=== PATIENT | male | born 1965 | race Caucasian/White ===

== ENCOUNTER 2024-11-14 11:08 | Emergency (ER) | payer OTHER, MEDICAID, SELFPAY ==
[2024-11-14] VITALS (8 sets, daily range): BP systolic 146–168; BP diastolic 103–106; PULSE 113–131; RESP 16–25; TEMP 36.7–39.4; O2SAT 95–100; BMI 27.6
--- NOTE | 2024-11-14 11:15 | PC.NURSE ---
Patient biba for shortness of breath. warm to touch. Tachy 130s-140s and hypertensive. temp 102.9 orally. Patient currently states he will not be treating the staff here with respect and states he will leave while cussing out the CNAs who are attempting to help him. allergies to penicillin.
--- NOTE | 2024-11-14 11:20 | PC.NURSE ---
1118 Patient refusing for us to help put a gown on him. Agitated and cursing at staff.
--- NOTE | 2024-11-14 11:21 | PC.NURSE ---
Patient will intermittently participate in care. Randomly refuses to respond to questions regarding medical treatment.
--- NOTE | 2024-11-14 11:24 | XR_ITS ---
Examination: AP chest single view TECHNIQUE: AP portable upright chest single view Exam date and time: November 14, 2024 1147 hours INDICATIONS: Sepsis protocol, fever tachycardia today. FINDINGS: Suspicious for early pneumonia in the left midlung and both bases Normal heart size CABG IMPRESSION: Suspicious for early bilateral pneumonia
--- NOTE | 2024-11-14 11:24 | EKG_ITS ---
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
--- NOTE | 2024-11-14 11:26 | PD.EDADULT ---
ED General RME/HPI General Stated complaint: DUFFICULTY BREATHING Time Seen by Provider: 11/14/24 11:23 Arrival date/time: 11/14/24 11:08 RME / HPI RME / HPI narrative: 59-year-old male patient with significant history of hypertension, COPD, hypercholesterolemia, was brought in by EMS for evaluation regarding shortness of breath. Patient's been having worsening shortness of breath for the last 2 weeks, getting worse, severity moderate. Patient's been using his COPD medication with no relief. Patient was satting 94% on room air when the EMS arrived. Patient was given albuterol. When examined the patient patient was noted to be tachycardic, and having a fever 102.9. Sepsis alert was initiated right away. Related Data Home Medications ?Medication ?Instructions ?Recorded ?Confirmed allopurinol 100 mg tablet 100 mg PO QDAY 02/20/22 02/20/22 atorvastatin 80 mg tablet 80 mg PO QDAY 02/20/22 02/20/22 clopidogrel 75 mg tablet 75 mg PO QDAY 02/20/22 02/20/22 furosemide 20 mg tablet 20 mg PO QDAY 02/20/22 02/20/22 gabapentin 100 mg tablet 100 mg PO BID 02/20/22 02/20/22 montelukast 10 mg tablet 10 mg PO QPM 02/20/22 02/20/22 pantoprazole 40 mg tablet,delayed 40 mg PO QDAY 02/20/22 02/20/22 release sertraline 100 mg tablet 100 mg PO QDAY 02/20/22 02/20/22 Previous Rx's ?Medication ?Instructions ?Recorded primidone 50 mg tablet 50 mg PO BID #0 tabs 02/21/22 primidone 50 mg tablet 50 mg PO BID #60 tabs 02/21/22 doxycycline hyclate 100 mg capsule 100 mg PO BID #14 caps 11/14/24 oseltamivir 30 mg capsule (Tamiflu) 30 mg PO BID 5 days #10 caps 11/14/24 prednisone 50 mg tablet 50 mg PO QDAY #7 tabs 11/14/24 Allergies Allergy/AdvReac Type Severity Reaction Status Date / Time acetaminophen [From Vicodin] Allergy Swelling Verified 02/20/22 16:07 of Lip/Tongue/Throat aspirin Allergy Swelling Verified 02/20/22 16:07 of Lip/Tongue/Throat codeine Allergy Swelling Verified 02/20/22 16:07 of Lip/Tongue/Throat hydrocodone [From Vicodin] Allergy Swelling Verified 02/20/22 16:07 of Lip/Tongue/Throat Penicillins Allergy Swelling Verified 02/20/22 16:07 of Lip/Tongue/Throat Review of Systems Review of Systems Narrative Review of Systems: Review of system reviewed and within normal limits except mentioned in HPI ED Exam Narrative Physical exam: VITAL SIGNS: Reviewed. GENERAL APPEARANCE: Alert and interactive, follows commands, no acute distress, febrile HEAD AND FACE: Non-traumatic. ENT: PERRL, pink conjunctivitis, eyelid no trauma, Mucous membrane moist. NECK: Supple, nontender, no nuchal rigidity. CHEST: Symmetric, no rales, + wheezing, no ronchi, no stridor, decreased breath sounds bilaterally. HEART: Tachycardic, no murmur, no gallops. ABDOMEN: Soft, positive bowel sounds, nondistended, no guarding, nontender, no rebound, no masses, RECTAL: Deferred. GENITAL: Deferred. NEUROLOGICAL: Gross motor function intact sensory function intact, Appropriate for age. MUSCULOSKELETAL: low back nontender, full range of motion. EXTREMITIES: Nontender, full range of motion. SKIN: Color pink, dry, no rash, no lacerations, no abrasions, no contusions. LYMPHATICS: Deferred. Course Quality Measures none Orders Category Date Time Status Bedside COVID-19 Antigen Test NOW Care 11/14/24 11:24 Active Bedside Influenza A&B Antigen Test NOW Care 11/14/24 11:26 Completed Transformer Assembler STAT Care 11/14/24 11:24 Active Continuous Pulse Oximetry STAT Care 11/14/24 11:24 Completed EKG (ED ONLY) *Do not use* NOW Care 11/14/24 11:24 Completed In and Out Catheter X1PRN Care 11/14/24 11:24 Active Insert IV NOW Care 11/14/24 11:24 Active NPO STAT Care 11/14/24 11:24 Active Strict Intake and Output Routine Care 11/14/24 11:24 Ordered EKG (ED Only) Stat Exams 11/14/24 11:24 Draft XR chest 1V SEPSIS PROTOCOL Stat Exams 11/14/24 11:24 Completed B-Type Natriuretic Peptide Stat Lab 11/14/24 11:41 Completed Blood Culture (Lab) Stat Lab 11/14/24 11:36 Received CBC Stat Lab 11/14/24 11:41 Completed Comprehensive Metabolic Panel Stat Lab 11/14/24 11:41 Completed LDH (Lactate Dehydrogenase) Stat Lab 11/14/24 11:41 Completed Lactate (Lactic Acid) Stat Lab 11/14/24 11:41 Completed Lactic Acid, 3 HR Stat Lab 11/14/24 15:06 Completed Lipase Stat Lab 11/14/24 11:41 Completed Magnesium Stat Lab 11/14/24 11:41 Completed Partial Thromboplastin Time Stat Lab 11/14/24 11:41 Completed Phosphorous Stat Lab 11/14/24 11:41 Completed Procalcitonin Stat Lab 11/14/24 11:41 Completed Prothrombin Time with INR Stat Lab 11/14/24 11:41 Completed Troponin I Stat Lab 11/14/24 11:41 Completed Urinalysis Stat Lab 11/14/24 12:45 Completed Urine Culture Stat Lab 11/14/24 12:45 Received VBG [Venous Blood Gas] Stat Lab 11/14/24 11:41 Completed Ibuprofen Tab [Motrin Tab] Med 11/14/24 11:24 Discontinued 800 mg PO X1 ONE Levalbuterol Rt [Xopenex Rt Devika] Med 11/14/24 11:24 Discontinued 1.25 mg INH X1 ONE MethylPREDNISolone.* [SoluMEDROL Inj] Med 11/14/24 11:24 Discontinued 125 mg IVP X1 ONE Oseltamivir [Tamiflu] Med 11/14/24 15:34 Discontinued 30 mg PO X1 ONE Oseltamivir [Tamiflu] Med 11/14/24 15:32 Discontinued 75 mg PO X1 ONE Sodium Chloride 0.9% 1000 ml [Ns] 1,000 ml Med 11/14/24 15:33 Active IV 999 mls/hr Sodium Chloride Rt Devika 0.9% [NS Rt Devika 0.9%] Med 11/14/24 11:24 Active 3 ml INH PRN PRN cefTRIAXone/D5w 1gm IV premix [Rocephin/D5w 1gm IV Med 11/14/24 11:25 Discontinued premix] 50 ml IV X1 Oxygen Delivery NOW RT 11/14/24 11:24 Active Vital Signs Vital signs: Vital Signs Temperature 102.9 F H 11/14/24 11:15 Pulse Rate 131 H 11/14/24 11:15 Respiratory Rate 20 11/14/24 11:15 Blood Pressure 168/103 H 11/14/24 11:15 Pulse Oximetry (%) 97 11/14/24 11:15 Oxygen Delivery Method Nasal Cannula 11/14/24 11:15 Oxygen Flow Rate 6 11/14/24 11:15 [facility] Patient data External records reviewed:: None Clinical information provided by:: none Social determinants that could affect healthcare access:: none Patient has the following chronic illnesses:: COPD How is presenting disease/condition affected by chronic disease/condition?: exacerbated by Evaluation data The following diagnostics were reviewed and interpreted by me:: lab results, radiology exam(s) and EKG tracing(s) Lab and/or radiology exams considered but not ordered:: None Interpretation Summary: EKG shows sinus tachycardia, ventricular rate of 127 bpm, no ST segment elevation or depression noted. Laboratory workup all came back with no leukocytosis on CBC however patient lactic acid was noted to be 2.7. Patient's creatinine also was noted to be 1.7, last creatinine several months ago was 1.6. Patient tested positive for influenza. Urinalysis no UTI. Chest x-ray showed early bilateral pneumonia. Medications Medications considered but not ordered:: None Medication administrations:: Medication Administration History Sodium Chloride (Ns) 1,000 mls @ 999 mls/hr IV .Q1H1M ONE Stop: 11/14/24 16:33 Sodium Chloride (Sodium Chloride Rt Devika 0.9% 3 Ml Nebu) 3 ml INH PRN PRN PRN Reason: SOLN Stop: 12/14/24 11:23 Last Admin: 11/14/24 12:10 Dose: 3 ml Documented By: RIAN Discontinued Medications Ceftriaxone Sodium/Dextrose (Rocephin/D5w 1gm Iv Premix) 50 mls @ 100 mls/hr IV X1 ONE Stop: 11/14/24 11:54 Last Infusion: 11/14/24 12:24 Dose: Infused Documented By: Admin: 11/14/24 12:01 Dose: 100 mls/hr Documented By: RY Ibuprofen (Ibuprofen Tab 400 Mg Tablet) 800 mg PO X1 ONE Stop: 11/14/24 11:25 Last Admin: 11/14/24 15:05 Dose: 800 mg Documented By: RY Levalbuterol HCl (Levalbuterol Rt 1.25 Mg/0.5 Ml Nebu) 1.25 mg INH X1 ONE Stop: 11/14/24 11:25 Last Admin: 11/14/24 12:10 Dose: 1.25 mg Documented By: RIAN Methylprednisolone Sodium Succinate (Methylprednisolone Sod Succ 62.5 Mg/Ml 2ml Vial) 125 mg IVP X1 ONE Stop: 11/14/24 11:25 Last Admin: 11/14/24 12:00 Dose: 125 mg Documented By: RY Oseltamivir Phosphate (Oseltamivir 75 Mg Capsule) 75 mg PO X1 ONE Stop: 11/14/24 15:33 Oseltamivir Phosphate (Oseltamivir 30 Mg Capsule) 30 mg PO X1 ONE Stop: 11/14/24 15:35 Tamiflu, Solu-Medrol IV, Xopenex, and Motrin patient was also given ceftriaxone IV. Patient also given IV fluids for hydration Consultations Consultation(s) initiated? (list below): No Diagnosis Differential Diagnosis ED Complaint MDM: Influenza, pneumonia, COPD exacerbation Most likely diagnosis given after review of the tests above:: Influenza, pneumonia, COPD exacerbation Admission Indicated Admission indicated?: not indicated Explain why admission is indicated or not indicated:: Stable for discharge. Patient was satting 95% on room air patient told me that he is ready to go home Admission Request Was there a request for admission?: No Disposition Plan Disposition Plan: Discharge Discharge Attestation Discharge Attestation: The patient was given an opportunity to ask questions and understood the discharge instructions. Discharge instructions specifically effects, indications for sooner follow up or return to the emergency department, and the expected course of current diagnosis. Patient condition: Stable Medical Decision Making MDM Narrative MDM Narrative: 59-year-old male patient with significant history of hypertension, COPD, hypercholesterolemia, was brought in by EMS for evaluation regarding shortness of breath. Patient's been having worsening shortness of breath for the last 2 weeks, getting worse, severity moderate. Patient's been using his COPD medication with no relief. Patient was satting 94% on room air when the EMS arrived. Patient was given albuterol. When examined the patient patient was noted to be tachycardic, and having a fever 102.9. Sepsis alert was initiated right away. Differential Diagnosis Differential Diagnosis: Influenza, pneumonia, COPD exacerbation Lab Data 11/14/24 11:41 11/14/24 11:41 Labs: Lab Results 11/14/24 11/14/24 11/14/24 Range/Units 11:41 12:45 15:06 WBC 4.9 (3.8-10.6) Thou/mm3 RBC 4.72 (4.50-5.90) Miln/mm3 Hgb 14.5 (13.5-16.0) g/dL Hct 43.7 (41.0-53.0) % MCV 93 (80-100) fL MCH 30.7 (25.0-35.0) pg MCHC 33.2 (31.0-37.0) g/dl RDW Std Deviation 46.0 H (35.1-43.9) fL Plt Count 78 L (140-440) Thou/mm3 Neut % (Auto) 87 H (37-80) % Lymph % (Auto) 5 L (10-50) % Cross % (Auto) 8 (0-12) % Eos % (Auto) 0 (0-10) % Baso % (Auto) 1 (0-2.5) % Neut # (Auto) 4.3 (1.8-7.7) Thou/mm3 Lymph # (Auto) 0.2 L (1.0-4.8) Thou/mm3 Cross # (Auto) 0.4 (0.0-0.8) Thou/mm3 Eos # (Auto) 0.0 (0.0-0.5) Thou/mm3 Baso # (Auto) 0.0 (0.0-0.2) Thou/mm3 Immature Gran # (Auto) 0.01 H (0.00-0.00) Thou/mm3 Absolute Nucleated RBC 0.00 (0.00-0.00) Thou/mm3 Immature Gran % 0 (0-0) % Nucleated RBC % 0 (0) /100 WBC PT 13.0 H (9.0-12.2) Seconds INR 1.2 (0.9-1.3) APTT 36.5 H (22.0-36.0) Seconds VBG pH 7.38 (7.33-7.66) VBG pCO2 36 (36-56) mmHg VBG pO2 27 (15-58) mmHg VBG O2 Sat (Steph) 52 L (96-97) % VBG Base Excess -3 (-3-3) Sodium 135 L (136-145) mMol/L Potassium 4.4 (3.4-5.1) mMol/L Chloride 104 (98-107) mMol/L Carbon Dioxide 23.3 (20.0-31.0) mMol/L Anion Gap 8 (7-16) BUN 15 (9-23) mg/dL Creatinine 1.7 H (0.6-1.3) mg/dL Estim Creat Clear Calc 51.4 L (>60) mL/min eGFR 46 L (60 - ) See Note BUN/Creatinine Ratio 9 L (12-20) Ratio Glucose 98 (74-106) mg/dL Calculated Osmolality 270 L (275-295) Lactic Acid 2.7 H 2.7 H (0.4-2.0) mMol/L Calcium 10.8 H (8.3-10.6) mg/dL Corrected Calcium 10.8 H (8.5-10.1) mg/dL Phosphorus 1.7 L (2.4-5.1) mg/dL Magnesium 2.0 (1.6-2.6) mg/dL Total Bilirubin 0.8 (0.3-1.2) mg/dL AST 17 (0-34) U/L ALT 17 (10-49) U/L Alkaline Phosphatase 132 H (46-116) U/L Lactate Dehydrogenase 160 (120-246) U/L Troponin I < 0.020 (0.0-0.045) ng/mL B-Natriuretic Peptide 216 H (0-100) pg/mL Total Protein 7.6 (5.7-8.2) gm/dL Albumin 4.2 (3.5-5.0) gm/dL Globulin 3.4 (2.3-3.5) gm/dL Albumin/Globulin Ratio 1.2 (1.2-2.2) Lipase 36 (12-53) U/L Procalcitonin 0.22 (0.0-0.49) ng/ml Ur Collection Type Clean Catch Urine Color Yellow (Lt Yel-Yel) Urine Clarity Clear (Clear/Hazy) Urine pH 6.0 (5.0-7.0) Ur Specific [place] 1.024 (1.001-1.035) Urine Protein 1+ A (Neg - Trace) Urine Glucose (UA) Negative (Negative) Urine Ketones Trace (Negative) Urine Blood 1+ A (Negative) Urine Nitrite Negative (Negative) Urine Bilirubin Negative (Negative) Urine Urobilinogen (Auto) 4.0 (0.0-1.0) mg/dL Ur Leukocyte Esterase Negative (Negative) Urine RBC 1 (0-3) /hpf Urine WBC 3 (0-5) /hpf Ur Squamous Epith Cells < 1 (0-5) /hpf Urine Bacteria None (None) Misc Test Result Platelets confirmed Discharge Plan Plan Patient Disposition: HOME (Self Care) Disposition Comment: Stable Prescriptions/Referrals Prescriptions/Med Rec: New oseltamivir [Tamiflu] 30 mg capsule 30 mg PO BID 5 Days Qty: 10 0RF prednisone 50 mg tablet 50 mg PO QDAY Qty: 7 0RF doxycycline hyclate 100 mg capsule 100 mg PO BID Qty: 14 0RF No Action atorvastatin 80 mg Tablet 80 mg PO QDAY clopidogrel 75 mg Tablet 75 mg PO QDAY allopurinol 100 mg Tablet 100 mg PO QDAY furosemide 20 mg Tablet 20 mg PO QDAY gabapentin 100 mg Tablet 100 mg PO BID pantoprazole 40 mg Tablet,Delayed Release (Dr/Ec) 40 mg PO QDAY montelukast 10 mg Tablet 10 mg PO QPM sertraline 100 mg Tablet 100 mg PO QDAY primidone 50 mg Tablet 50 mg PO BID Qty: 0 0RF primidone 50 mg tablet 50 mg PO BID Qty: 60 2RF Referrals: No Primary/Family,Physician [Primary Care Provider] - In 1 week Problem List Clinical Impression: Influenza, Pneumonia Patient/Caregiver Discharge Instructions Education Materials: ED Pneumonia (Adult) Additional Instructions: Thank you for the opportunity for serving you today. You are stable for discharged . You are advised to: Follow-up with your PCP in 1 to 2 days Return to ED for worsening of symptoms Take medication as prescribed Print Language: Sami Stand Alone Forms: Renetta Award Info., Patient Portal Info Letter PA/LITERACY CONSULTANT Supervising Physician MERCED/LITERACY CONSULTANT Supervising Physician: MD Sharmaine
--- NOTE | 2024-11-14 11:38 | PC.NURSE ---
Patient states he refuses all antibiotics and steroids. States he only wants a warm blanket and water
[2024-11-14 11:45] LABS: Base Excess, Venous -3 (-3-3); Lactate (Lactic Acid) 2.7 mMol/L (0.4-2.0); O2 Saturation, Venous 52 % (96-97); PCO2, Venous 36 mmHg (36-56); PO2, Venous 27 mmHg (15-58); pH, Venous 7.38 (7.33-7.66)
[2024-11-14 11:50] LABS: Basophils % (Auto) 1 % (0-2.5); Eosinophils % (Auto) 0 % (0-10); Hematocrit 43.7 % (41.0-53.0); Hemoglobin 14.5 g/dL (13.5-16.0); Immature Granulocytes % (Auto) 0 % (0-0); Immature Granulocytes Auto 0.01 Thou/mm3 (0.00-0.00); Lymphocytes # (Auto) 0.2 Thou/mm3 (1.0-4.8); Lymphocytes % (Auto) 5 % (10-50); Mean Corpuscular HGB Conc 33.2 g/dl (31.0-37.0); Mean Corpuscular Hemoglobin 30.7 pg (25.0-35.0); Mean Corpuscular Volume 93 fL (80-100); Monocytes # (Auto) 0.4 Thou/mm3 (0.0-0.8); Monocytes % (Auto) 8 % (0-12); Neutrophils # (Auto) 4.3 Thou/mm3 (1.8-7.7); Neutrophils % (Auto) 87 % (37-80); Nucleated Red Blood Cell % 0 /100 WBC (0); Platelet Count 78 Thou/mm3 (140-440); Red Blood Count 4.72 Miln/mm3 (4.50-5.90); White Blood Count 4.9 Thou/mm3 (3.8-10.6)
[2024-11-14] MEDS: MethylPREDNISolone SOD SUCC 62.5 MG/ML 2ML VIAL 125 MG IVP (12:00)
[2024-11-14] MEDS: cefTRIAXone/D5w 1gm IV premix 50 ML IV (12:01)
[2024-11-14 12:02] LABS: INR 1.2 (0.9-1.3); Partial Thromboplastin Time 36.5 Seconds (22.0-36.0)
[2024-11-14 12:05] LABS: B-Type Natriuretic Peptide 216 pg/mL (0-100)
[2024-11-14] MEDS: SODIUM CHLORIDE RT SOL 0.9% 3 ML NEBU INH (12:10)
[2024-11-14] MEDS: LEVALBUTEROL RT 1.25 MG/0.5 ML NEBU INH (12:10)
--- NOTE | 2024-11-14 12:10 | PC.NURSE ---
Patient allowed for steroid and antibiotics to be given. Currently refusing all other treatment until he feels ready. Refusing ibuprofen until later on
[2024-11-14 12:14] LABS: Alanine Aminotransferase 17 U/L (10-49); Albumin, Serum 4.2 gm/dL (3.5-5.0); Albumin/Globulin Ratio 1.2 (1.2-2.2); Alkaline Phosphatase 132 U/L (46-116); Anion Gap 8 (7-16); Aspartate Amino Transferase 17 U/L (0-34); BUN/Creatinine Ratio 9 Ratio (12-20); Bilirubin,Total 0.8 mg/dL (0.3-1.2); Blood Urea Nitrogen 15 mg/dL (9-23); Calcium 10.8 mg/dL (8.3-10.6); Calcium (Corrected) 10.8 mg/dL (8.5-10.1); Carbon Dioxide 23.3 mMol/L (20.0-31.0); Chloride 104 mMol/L (98-107); Creatinine (Component) 1.7 mg/dL (0.6-1.3); Estimated Creatinine Clearance 51.4 mL/min (>60); Globulin 3.4 gm/dL (2.3-3.5); Glucose 98 mg/dL (74-106); LDH (Lactate Dehydrogenase) 160 U/L (120-246); Lipase 36 U/L (12-53); Osmolality,Calculated 270 (275-295); Phosphorous 1.7 mg/dL (2.4-5.1); Potassium 4.4 mMol/L (3.4-5.1); Procalcitonin 0.22 ng/ml (0.0-0.49); Sodium 135 mMol/L (136-145); Total Protein 7.6 gm/dL (5.7-8.2); Troponin I < 0.020 ng/mL (0.0-0.045); eGFR 46 See Note
[2024-11-14 12:21] LABS: Slide Review Platelets confirmed
--- NOTE | 2024-11-14 12:37 | PC.NURSE ---
Patient informed that he has influenza A. Still refusing ibuprofen and refusing to answer all questions at this time.
[2024-11-14 13:05] LABS: Collection Type, Urine Clean Catch
[2024-11-14 13:09] LABS: Bilirubin,Urine Negative (Negative); Blood,Urine 1+ (Negative); Clarity,Urine Clear (Clear/Hazy); Color,Urine Yellow (Lt Yel-Yel); Glucose, Urine Negative (Negative); Ketones,Urine Trace (Negative); Leukocyte Esterase,Urine Negative (Negative); Nitrite,Urine Negative (Negative); Protein,Urine 1+ (Neg - Trace); RBC,Urine 1 /hpf (0-3); Specific Gravity,Urine 1.024 (1.001-1.035); Squamous Epithelial Cell,Urine < 1 /hpf (0-5); WBC,Urine 3 /hpf (0-5)
--- NOTE | 2024-11-14 13:50 | PC.NURSE ---
Patient states he put himself on the floor in an effort to get attention. He states he knows he had his call light but felt the response time was not fast enough and he didn't come to get this automobile service writer because he felt the RN was busy. When asked what he needs he states a pillow and to be left on the floor to sleep. Patient provided pillow
[2024-11-14 14:43] LABS: Reflex Lactate? Y
[2024-11-14] MEDS: IBUPROFEN TAB 400 MG TABLET 800 MG PO (15:05)
[2024-11-14 15:15] LABS: Lactic Acid, 3 HR 2.7 mMol/L (0.4-2.0)
[2024-11-14] MEDS: SODIUM CHLORIDE 0.9% 1000 ML 1,000 ML 999 ML IV (16:50)
[2024-11-14] MEDS: OSELTAMIVIR 30 MG CAPSULE PO (16:54)
--- NOTE | 2024-11-14 18:25 | PC.NURSE ---
Patient refused to allow vital sign check. Patient gcs 15 aao x4. Patient's son contacted for rides and states someone is on the way. Patient stated he wants to wait outside. Offered a warm blanket, patient refused. No questions or concerns at this time. States he feels better and understands to roll picker medications at the pharmacy.
== END 2024-11-14 18:28 | disposition home or self-care (01) ==
PROVIDERS: Nurse Practitioner Family; Emergency Provider Emergency Medicine
DX: J44.0 Chronic obstructive pulmonary disease with (acute) lower respiratory infection (principal); J11.00 Influenza due to unidentified influenza virus with unspecified type of pneumonia; R00.0 Tachycardia, unspecified; I10 Essential (primary) hypertension; E78.00 Pure hypercholesterolemia, unspecified
CPT/HCPCS: 36415; 71045; 80053; 81001; 82803; 83605; 83615; 83690; 83735; 83880; 84100; 84145; 84484; 85025; 85610; 85730; 87040; 87086; 87400; 87811; 93005; 94640; 96365; 96375; 99284; J0696; J2919; J7030; A9270

== ENCOUNTER 2025-09-16 22:26 | Emergency (ER) | payer OTHER, MEDICAID, SELFPAY ==
--- NOTE | 2025-09-16 22:36 | PD.EDHA ---
ED Headache RME/HPI General Chief Complaint: Headache Stated Complaint: HEADACHE Time Seen by Provider: 09/16/25 22:36 Arrival date/time: 09/16/25 22:26 RME / HPI RME / HPI Narrative: Dr. Foreman?s Main ED Evaluation: 59yo male with a history of COPD, HTN BIBA from home presents to the ED for complaints of a headache and dizziness x 2130. Patient was using the restroom when he suddenly developed a significant headache and felt dizzy. Patient denies any chest pain, shortness of breath, or any other associated symptoms. Patient endorses he's had headaches in the past, but not to this severity. Of note, patient had 4 cardiac stents placed 6 days ago. Related Data Home Medications ?Medication ?Instructions ?Recorded ?Confirmed allopurinol 100 mg tablet 100 mg PO QDAY 02/20/22 02/20/22 atorvastatin 80 mg tablet 80 mg PO QDAY 02/20/22 02/20/22 clopidogrel 75 mg tablet 75 mg PO QDAY 02/20/22 02/20/22 furosemide 20 mg tablet 20 mg PO QDAY 02/20/22 02/20/22 gabapentin 100 mg tablet 100 mg PO BID 02/20/22 02/20/22 montelukast 10 mg tablet 10 mg PO QPM 02/20/22 02/20/22 pantoprazole 40 mg tablet,delayed 40 mg PO QDAY 02/20/22 02/20/22 release sertraline 100 mg tablet 100 mg PO QDAY 02/20/22 02/20/22 Previous Rx's ?Medication ?Instructions ?Recorded primidone 50 mg tablet 50 mg PO BID #0 tabs 02/21/22 primidone 50 mg tablet 50 mg PO BID #60 tabs 02/21/22 doxycycline hyclate 100 mg capsule 100 mg PO BID #14 caps 11/14/24 prednisone 50 mg tablet 50 mg PO QDAY #7 tabs 11/14/24 Allergies Allergy/AdvReac Type Severity Reaction Status Date / Time acetaminophen (From Vicodin) Allergy Swelling Verified 09/16/25 22:51 of Lip/Tongue/Throat aspirin Allergy Swelling Verified 09/16/25 22:51 of Lip/Tongue/Throat codeine Allergy Swelling Verified 09/16/25 22:51 of Lip/Tongue/Throat hydrocodone (From Vicodin) Allergy Swelling Verified 09/16/25 22:51 of Lip/Tongue/Throat Penicillins Allergy Swelling Verified 09/16/25 22:51 of Lip/Tongue/Throat Review of Systems Review of Systems Systems Reviewed: All systems reviewed, normal except as documented Past Medical History Past Medical History CARDIAC: Negative Congestive Heart Failure RESPIRATORY: Positive Chronic Obstructive Pulmonary Disease (COPD); Negative Asthma, Emphysema, Pneumonia or Tuberculosis GENITOURINARY: Negative Renal Disease ENDOCRINE: Negative Diabetes Mellitus Type 1 or Diabetes Mellitus Type 2 OTHER HISTORY: Negative Cancer Social History SMOKING STATUS: Heavy (> 1 pack/day) 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 Head is normocephalic atraumatic, neck shows no nuchal rigidity, eyes pupils equal round reactive to light, heart regular rate and rhythm, lungs clear to auscultation equal bilaterally, abdomen soft nondistended nontender, neurologic exam no focal motor deficits. Patient is somewhat confused to year however according to his daughter at bedside that is normal for the patient. Course Quality Measures none Orders Category Date Time Status Walls [Urinary Catheter] QS Care 09/16/25 23:[address] head/brain wo con Stat Exams 09/16/25 22:44 Taken Alcohol, Blood Medical Stat Lab 09/16/25 22:50 Completed CBC Stat Lab 09/16/25 22:50 Completed CMP [Comprehensive Metabolic Panel] Stat Lab 09/16/25 22:50 Completed Drug Screen,Urine Stat Lab 09/16/25 22:56 Completed PT [Prothrombin Time with INR] Stat Lab 09/16/25 22:50 Completed Vital Signs Vital signs: Vital Signs Temperature 98.4 F 09/16/25 22:37 Pulse Rate 84 09/16/25 22:37 Respiratory Rate 18 09/16/25 22:37 Blood Pressure 163/111 H 09/16/25 22:37 Pulse Oximetry (%) 98 09/16/25 22:37 Oxygen Delivery Method Room Air 09/16/25 22:37 Headache MDM Narrative MDM Narrative:: Scribe Attestation: 09/16/25 Modesta Ralph am scribing for and in the presence of Dr. Foreman. Patient is presenting approximately 1 hour from a sudden onset severe headache. CAT scan of the brain done well under 6 hours from the onset of pain showed no bleed. No mass. I interpreted all labs. Patient feels better and wishes to go home. I had a long discussion with the patient and his daughter at bedside who feel comfortable going home. Patient discharged in stable condition. Patient has had stable vital signs during the ER stay. Patient data External records reviewed:: [facility] previous records (Per chart review, patient was seen here on 11/14/24 for Influenza.) and EMS form Clinical information provided by:: patient and EMS Social determinants that could affect healthcare access:: none Patient has the following chronic illnesses:: COPD How is presenting disease/condition affected by chronic disease/condition?: uneffected by Evaluation data The following diagnostics were reviewed and interpreted by me:: lab results and radiology exam(s) Lab and/or radiology exams considered but not ordered:: none Interpretation Summary: See MDM. Medications / Prescriptions Medications or Prescriptions considered but not ordered:: none Medication administrations:: none Consultations Consultation(s) initiated? (list below): No Diagnosis Differential diagnosis headache: other (See MDM) Most likely diagnosis given after review of the tests above:: see clinical impression below Admission Indicated Admission indicated?: not indicated Admission Request Was there a request for admission?: No Disposition Plan Disposition Plan: Discharge Discharge Attestation Discharge Attestation: The patient and all family members were given an opportunity to ask questions and understood the discharge instructions. Discharge instructions specifically effects, indications for sooner follow up or return to the emergency department, and the expected course of current diagnosis. Patient condition: Stable Discharge Plan Plan Patient Disposition: HOME (Self Care) Prescriptions/Referrals Prescriptions/Med Rec: No Action atorvastatin 80 mg Tablet 80 mg PO QDAY clopidogrel 75 mg Tablet 75 mg PO QDAY allopurinol 100 mg Tablet 100 mg PO QDAY furosemide 20 mg Tablet 20 mg PO QDAY gabapentin 100 mg Tablet 100 mg PO BID pantoprazole 40 mg Tablet,Delayed Release (Dr/Ec) 40 mg PO QDAY montelukast 10 mg Tablet 10 mg PO QPM sertraline 100 mg Tablet 100 mg PO QDAY primidone 50 mg Tablet 50 mg PO BID Qty: 0 0RF primidone 50 mg tablet 50 mg PO BID Qty: 60 2RF prednisone 50 mg tablet 50 mg PO QDAY Qty: 7 0RF doxycycline hyclate 100 mg capsule 100 mg PO BID Qty: 14 0RF Problem List Clinical Impression: Headache Patient/Caregiver Discharge Instructions Education Materials: Self-Care for Headaches Print Language: Yi Stand Alone Forms: Renetta Trammell Info., Patient Portal Info Letter PA/DENTAL OFFICE RECEPTIONIST Supervising Physician PA/DENTAL OFFICE RECEPTIONIST Supervising Physician: Patient is stable fo
[2025-09-16 22:37] VITALS: BP 163/111; PULSE 84; RESP 18; TEMP 36.9; O2SAT 98
[2025-09-16 22:38] VITALS: PULSE 93; RESP 18; O2SAT 99; BMI 27.8
--- NOTE | 2025-09-16 22:44 | XR_ITS ---
Examination: CT brain head without contrast. 2-D sagittal coronal reconstructions Date and time of exam: September 16, 2025, 11:40 p.m., comparison February 19, 2022 INDICATIONS: Altered mental status headache today CTDI: vol (mGy): 46.7 DLP: (mGycm): 905 Technique: Multiple CT axial sections of the brain have been obtained, 5 mm slice thickness. Contrast has not been administered. 2-D sagittal, coronal reconstructions have been obtained Low dose protocols were performed. One or more of the following dose reduction techniques were used; automated exposure control, adjustment of the mA and/or KV according to patient size, use of iterative reconstruction technique. Findings: No significant ventricular enlargement. 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 No mass effect or midline shift Basal cisterns are not remarkable. Fourth ventricle is midline. Cranial vault intact. Impression: Negative for acute hemorrhage, mass effect or midline shift Multiple old appearing infarcts but clinical correlation advised As clinically warranted, brain MRI follow-up would best assess for early acute infarction
[2025-09-16 22:56] VITALS: BP 142/106; PULSE 85; RESP 18; TEMP 36.9; O2SAT 99
[2025-09-16 23:13] LABS: Basophils # (Auto) 0.1 Thou/mm3 (0.0-0.2); Basophils % (Auto) 0 % (0-2.5); Eosinophils # (Auto) 0.4 Thou/mm3 (0.0-0.5); Eosinophils % (Auto) 3 % (0-10); Hematocrit 41.8 % (41.0-53.0); Hemoglobin 14.3 g/dL (13.5-16.0); Immature Granulocytes Auto 0.05 Thou/mm3 (0.00-0.00); Lymphocytes # (Auto) 2.1 Thou/mm3 (1.0-4.8); Lymphocytes % (Auto) 15 % (10-50); Mean Corpuscular HGB Conc 34.2 g/dl (31.0-37.0); Mean Corpuscular Hemoglobin 32.7 pg (25.0-35.0); Mean Corpuscular Volume 96 fL (80-100); Monocytes # (Auto) 1.2 Thou/mm3 (0.0-0.8); Monocytes % (Auto) 9 % (0-12); Neutrophils # (Auto) 10.1 Thou/mm3 (1.8-7.7); Neutrophils % (Auto) 73 % (37-80); Nucleated Red Blood Cell # 0.00 Thou/mm3 (0.00-0.00); Nucleated Red Blood Cell % 0 /100 WBC (0); Platelet Count 201 Thou/mm3 (140-440); RDW Standard Deviation 48.4 fL (35.1-43.9); Red Blood Count 4.37 Miln/mm3 (4.50-5.90); White Blood Count 13.9 Thou/mm3 (3.8-10.6)
[2025-09-16 23:14] LABS: Amphetamine/Methamp Scrn,U Negative (Negative); Barbiturate Screen,Urine Positive (Negative); Benzodiazepines Screen,Urine Negative (Negative); Benzoylecgonine Screen, Ur Negative (Negative); Fentanyl Screen,Urine Negative (Negative); Opiate Screen,Urine Negative (Negative); THC Screen,Urine Negative (Negative)
[2025-09-16 23:19] LABS: INR 1.0 (0.9-1.3); Prothrombin Time 10.7 Seconds (9.0-12.2)
[2025-09-16 23:38] LABS: Alanine Aminotransferase 8 U/L (10-49); Albumin, Serum 4.0 gm/dL (3.5-5.0); Albumin/Globulin Ratio 1.7 (1.2-2.2); Alcohol, Blood Medical < 3.0 mg/dL (0-10.0); Alkaline Phosphatase 90 U/L (46-116); Anion Gap 11 (7-16); Aspartate Amino Transferase 14 U/L (0-34); BUN/Creatinine Ratio 11 Ratio (12-20); Bilirubin,Total 0.5 mg/dL (0.3-1.2); Blood Urea Nitrogen 14 mg/dL (9-23); Calcium 10.3 mg/dL (8.3-10.6); Calcium (Corrected) 10.3 mg/dL (8.5-10.1); Carbon Dioxide 25.1 mMol/L (20.0-31.0); Chloride 109 mMol/L (98-107); Creatinine (Component) 1.3 mg/dL (0.6-1.3); Estimated Creatinine Clearance 70.5 mL/min (>60); Globulin 2.4 gm/dL (2.3-3.5); Glucose 96 mg/dL (74-106); Osmolality,Calculated 289 (275-295); Potassium 4.2 mMol/L (3.4-5.1); Sodium 145 mMol/L (136-145); Total Protein 6.4 gm/dL (5.7-8.2); eGFR > 60 See Note
[2025-09-17 00:02] VITALS: BP 142/100; PULSE 86; RESP 20; TEMP 36.3; O2SAT 98
== END 2025-09-17 00:02 | disposition home or self-care (01) ==
LOC: SERX 09-17 00:10
PROVIDERS: Emergency Provider Emergency Medicine
DX: R51.9 Headache, unspecified (principal); I10 Essential (primary) hypertension; J44.9 Chronic obstructive pulmonary disease, unspecified
CPT/HCPCS: 36415; 70450; 80053; 80307; 80320; 85025; 85610; 99284; A4314; G0480